=== PATIENT | male | born 1960 | race Caucasian/White ===

== ENCOUNTER 2023-11-12 08:43 | Day surgery (SDC) | payer OTHER, MEDICAID ==
[~2023-11-12 08:43] MED LIST: Metoclopramide 10 MG/2 ML SDV IV PRN
[2023-11-12] MEDS: Sodium Chloride 0.9% 1,000 ML IV SCH (09:22)
[2023-11-12] MEDS ORDERED: Propofol 200 MG/20 ML SDV ONE (10:35)
== END 2023-11-12 12:09 | disposition home or self-care (01) ==
LOC: LB.SDS 08:43
PROVIDERS: ATTEND Surgery
DX: D12.3 Benign neoplasm of transverse colon (principal); E78.00 Pure hypercholesterolemia, unspecified; Z80.0 Family history of malignant neoplasm of digestive organs
CPT/HCPCS: 88305; J2704; J7030